=== PATIENT | female | born 1985 | race Caucasian/White ===

== ENCOUNTER 2017-02-23 13:09 | Emergency (ER) | payer OTHER ==
--- NOTE | 2017-02-23 13:55 | EDPHY ---
General - History Smoking Status: Former smoker Narrative: CHIEF COMPLAINT: M1, suicidal ideation HISTORY OF PRESENT ILLNESS: Patient reports with complaints of suicidal and depression. She arrives on an M1 hold due to this. She reports that she has been increasingly depressed with the past 2 weeks. He has history of bipolar depression with previous suicide attempt. She had a plan of going up to the top of the building jumping off to . She also considered overdosing on her medication. She had written a suicide note for this. She went up to the 4th floor today campus to jump off a building but there were too many people there eating so she felt bad. [facility] then [facility] to [facility] help. No other associated complaints or modifying factors. PSYCHIATRIC DIAGNOSES: Depression, bipolar, anxiety, previous suicide attempt PRIOR PSYCHIATRIC EVALUATIONS: No inpatient evaluation M1/DETAINER: Today at 9:30 a.m. by outside provider REVIEW OF SYSTEMS: Ten systems reviewed and are negative unless otherwise noted in the HPI EXAMINATION General Appearance: Alert, no distress Head: normocephalic, atraumatic Eyes: Pupils equal and round, no conjunctival pallor or injection ENT, Mouth: Mucous membranes moist Neck: Normal inspection, supple, non-tender Respiratory: Lungs are clear to auscultation. No wheezing, rhonchi or crackles Cardiovascular: Regular rate and rhythm. No murmur Gastrointestinal: Abdomen is soft and nontender Back: non-tender, no bony abnormalities Neurological: GCS 15. A&O, nonfocal, normal gait. Normal mental status Skin: Warm and dry, no rash. No signs of cutting but no lacerations Extremities: Nontender, no pedal edema Psychiatric: Depressed mood and flat affect. Cooperative. Suicidal ideation with plan of jumping off of a building or overdose on antipsychotic medications DIFFERENTIAL DIAGNOSES: Including but not limited to suicidal ideation, suicide attempt, depression, bipolar disorder, psychosis MDM: 1:55 p.m. M1 hold due to suicidal ideation with plan of building or us on pills patient actually wrote a suicide note for this. She went outside medical facility, with a completed an M1 and sent her to our facility for clearance evaluation. She is cooperative at this time. Still feeling suicidal. 3:30 p.m. Patient has been medically cleared. There is mild leukocytosis but no signs of infection on examination. Cleared for evaluation at this time. 5:10 p.m. Patient is still awaiting psychiatric evaluation. At this time I discussed the case with Dr. Rain. Patient remains calm and cooperative pending the evaluation. SUPERVISION: Patient was evaluated in conjunction with the supervising physician. Please see their note for details. (Sergio Rangel) I assumed care of the patient from the physician assistant vice president at 5:00 p.m.. She has been medically cleared for psychiatric evaluation. Update at 9:00 p.m.: The patient was evaluated by Mental Health. She is still actively suicidal. They feel in-patient psychiatric hospitalization is warranted. She is being evaluated for possible placement here at [facility]. The patient will be turned over to Dr. Kiran Arredondo at 9: 00 p.m. pending psychiatric disposition. (Mu Rain) The patient is awaiting psychiatric placement. Nighttime medications given. Care transferred to Dr. Montes at shift change. (Kiran Arredondo) 6:20 a.m.- The patient has remained stable during my shift. She will be transfer to [address] [place] [id number] later this morning. The case will be signed out to the oncoming provider Dr. Wilson at 7:00 a.m. shift change. (Tracy Montes) Medical Decision Making: This patient was turned over to me at shift change. Unfortunately, [address] [place] [address] was unable to accept this patient due to staffing issues. We have started the search for a new potential placement facility at 7:30 a.m.. Patient is comfortable. Meds have been given needs met (Madhu Wilson) - Objective Vital Signs: Initial Vital Signs Temperature (C) 37 C 02/23/17 13:17 Heart Rate 91 02/23/17 13:17 Respiratory Rate 18 02/23/17 13:17 Blood Pressure 122/79 H 02/23/17 13:17 O2 Sat (%) 97 02/23/17 13:17 O2 Delivery Mode Room Air Allergies/Adverse Reactions: No Known Allergies Allergy (Unverified 02/23/17 13:15) Home Medications: Medication Instructions Recorded Bupropion HCl [Forfivo Xl] 450 mg PO DAILY@02/23/17 Cyclobenzaprine [Flexeril 10 MG 5 mg PO HS PRN 02/23/17 (*)] Estradiol [Estradiol 1 MG (*)] 2 mg PO DAILY@02/23/17 Estradiol [Estradiol 1 MG (*)] 3 mg PO DAILY@19 02/23/17 Progesterone, Micronized 100 mg PO HS 02/23/17 [Progesterone] Spironolactone 100 mg PO DAILY@07 02/23/17 lamoTRIgine [LamICTAL 100 MG (*)] 200 mg PO DAILY@06 02/23/17 methylPREDNISolone [Medrol Dose 1 each PO AD 02/23/17 Norm] Laboratory Results: Laboratory Results 02/23/17 13:50 02/23/17 13:50 Medications Given: Discontinued Medications Cyclobenzaprine HCl (Flexeril) 10 mg PO EDNOW ONE Stop: 02/23/17 21:03 Last Admin: 02/23/17 21:46 Dose: 10 mg Estradiol (Estradiol) 3 mg PO EDNOW ONE Stop: 02/23/17 21:16 Last Admin: 02/23/17 21:46 Dose: 3 mg Methylprednisolone (Medrol) 16 mg PO EDNOW ONE Stop: 02/23/17 22:23 Last Admin: 02/23/17 22:52 Dose: Not Given Methylprednisolone (Medrol) 16 mg PO EDNOW ONE Stop: 02/23/17 22:31 Last Admin: 02/23/17 22:52 Dose: 16 mg Progesterone (Prometrium) 100 mg PO EDNOW ONE Stop: 02/23/17 21:04 Last Admin: 02/23/17 21:46 Dose: 100 mg Spironolactone (Aldactone) 200 mg PO EDNOW ONE Stop: 02/23/17 22:01 Last Admin: 02/23/17 22:10 Dose: 200 mg Departure - Departure Disposition: [facility] IP Clinical Impression: Suicidal ideation, Severe major depression Condition: Fair Referrals: NONE *PRIMARY CARE P,. [Primary Care Provider] - As per Instructions
[2017-02-23 15:08] LABS: % IMMATURE GRANULYOCYTES 0.4 % (0.0-1.1); ABSOLUTE IMMATURE GRANULOCYTES 0.07 10^3/uL (0.00-0.10); ADD DIFF? NO; ADD MORPH? NO; ADD SCAN? NO; ATYPICAL LYMPHOCYTE FLAG 0 (0-99); FRAGMENT RBC FLAG 0 (0-99); HEMATOCRIT 37.2 % (38.0-47.0); HEMOGLOBIN 12.6 g/dL (12.6-16.3); LEFT SHIFT FLG 0 (0-99); LIPEMIA HEMOLYSIS FLAG 90 (0-99); MEAN CELL HEMOGLOBIN 29.7 pg (27.9-34.1); MEAN CELL HEMOGLOBIN CONCENTR. 33.9 g/dL (32.4-36.7); MEAN CELL VOLUME 87.7 fL (81.5-99.8); MEAN PLATELET VOLUME 10.8 fL (8.7-11.7); PLATELET CLUMPS FLAG 0 (0-99); PLATELET COUNT 330 10^3/uL (150-400); RED BLOOD CELL COUNT 4.24 10^6/uL (4.18-5.33); RED CELL DISTRIBUTION WIDTH 12.9 % (11.5-15.2)
[2017-02-23 15:28] LABS: ANION GAP 12 mEq/L (8-16); CARBON DIOXIDE 23 mEq/l (22-31); CHLORIDE 100 mEq/L (97-110); CREATININE 0.9 mg/dL (0.6-1.0); ETHANOL SERUM < 10 mg/dL (0-10); GLOMERULAR FILTRATION RATE > 60; GLUCOSE 72 mg/dL (70-100); POTASSIUM 3.8 mEq/L (3.5-5.2); SALICYLATE < 1.0 mg/dL (2.0-20.0); SODIUM 135 mEq/L (134-144)
[2017-02-23] MEDS ORDERED: CYCLOBENZAPRINE 10 MG TAB PO ONE (21:02)
[2017-02-23] MEDS ORDERED: PROGESTERONE,MICR 100 MG CAP PO ONE (21:03)
[2017-02-23] MEDS ORDERED: ESTRADIOL 1 MG TAB PO ONE (21:15)
[2017-02-23] MEDS ORDERED: SPIRONOLACTONE 100 MG TAB PO ONE (22:00)
[2017-02-23] MEDS ORDERED: methylPREDNISolone 4 MG TAB PO ONE ×2 (22:22→22:30)
[2017-02-24] MEDS ORDERED: lamoTRIgine 100 MG TAB PO ONE (07:41)
[2017-02-24] MEDS ORDERED: SPIRONOLACTONE 25 MG TAB PO ONE (07:42)
[2017-02-24] MEDS ORDERED: buPROPion XL 150 MG TAB PO ONE (07:50)
[2017-02-24 07:54] VITALS: RESP 16
[2017-02-24] MEDS ORDERED: ESTRADIOL 1 MG TAB PO ONE (09:00)
[2017-02-24] MEDS ORDERED: *MD ORDERING ONLY-MEDROL DOSE PAK PO SCH (10:15)
[2017-02-24 11:22] VITALS: BP 123/74; PULSE 80; TEMP 97.5; O2SAT 99
== END 2017-02-24 11:21 ==
DX: F32.9 Major depressive disorder, single episode, unspecified (principal)
CPT/HCPCS: 80305; G0480